=== PATIENT | female | born 1970 ===

== ENCOUNTER → 2019-07-31 | Outpatient (REF) | payer OTHER | LOC: M LAB LCGH 11:33 | PROVIDERS: ATTEND Obstetrics & Gynecology | DX: R10.2 Pelvic and perineal pain (principal) ==

== ENCOUNTER → 2019-08-21 | Outpatient (REF) | LOC: M LAB LCGH 14:46 | PROVIDERS: ATTEND Obstetrics & Gynecology | DX: N93.9 Abnormal uterine and vaginal bleeding, unspecified (principal) ==